=== PATIENT | female | born 1980 | race Hispanic/Latino ===

== ENCOUNTER 2018-02-09 16:30 | Emergency (ER) | payer SELFPAY ==
[~2018-02-09 16:30] MED LIST: Sodium Chloride Irrig Solution 250 ML BOT ONE
[2018-02-09] MEDS ORDERED: Acetaminophen 325 MG TAB ONE (17:07)
[2018-02-09] MEDS ORDERED: Ibuprofen 800 MG TAB ONE (17:07)
[2018-02-09] MEDS ORDERED: HYDROcodone/Acetaminophen 5/325 mg Tablet ONE (17:07)
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
== END 2018-02-09 17:19 | disposition home or self-care (01) ==
LOC: MADERS 16:30
DX: S61.432A Puncture wound without foreign body of left hand, initial encounter (principal); F17.210 Nicotine dependence, cigarettes, uncomplicated; W26.0XXA Contact with knife, initial encounter